=== PATIENT | female | born 1970 | race African-American/Black ===

== ENCOUNTER 2020-11-26 15:45 | Outpatient (CLI) | payer OTHER ==
[2020-11-27 02:13] LABS: SARS-CoV-2 PCR by NAA Not Detected (NotDetected)
== END 2020-11-26 15:46 | disposition home or self-care (01) ==
LOC: CSHLAB 15:45
PROVIDERS: ATTEND Internal Medicine Gastroenterology
DX: Z01.812 Encounter for preprocedural laboratory examination (principal); Z20.822 Contact with and (suspected) exposure to COVID-19
CPT/HCPCS: 87635; U0003; U0005

== ENCOUNTER 2020-11-29 06:19 | Day surgery (SDC) | payer OTHER ==
[2020-11-27 14:38] VITALS: BMI 41.5
[2020-11-29] MEDS ORDERED: Lidocaine 1% MPF 2 ML VIAL ONE ×3 (06:40→07:49)
[2020-11-29] MEDS ORDERED: Midazolam HCl 2 mg/2 ml Vial ONE (07:51)
[2020-11-29] MEDS ORDERED: PROPOFOL 40 ML ONE (08:05)
[2020-11-29] MEDS ORDERED: Lidocaine 1% PF 5 ML VIAL ONE (08:05)
[2020-11-29] MEDS ORDERED: PROPOFOL 20 ML ONE (08:28)
== END 2020-11-29 09:35 | disposition home or self-care (01) ==
LOC: CSHSDC 06:19
PROVIDERS: ATTEND Internal Medicine Gastroenterology
PROC: 0DJD8ZZ Inspection of Lower Intestinal Tract, Via Natural or Artificial Opening Endoscopic (ICD-10-PCS; principal; 2020-11-29)
DX: Z12.11 Encounter for screening for malignant neoplasm of colon (principal); K64.9 Unspecified hemorrhoids
CPT/HCPCS: J2250; J2704